=== PATIENT | male | born 1980 | race Caucasian/White ===

== ENCOUNTER 2019-12-17 14:46 | Emergency (ER) | payer SELFPAY ==
--- NOTE | ~2019-12-17 | XR_ITS ---
EXAMINATION: XR chest 1V portable EXAM DATE: 12/17/2019 17:46 INDICATION: Hypertension. TECHNIQUE: Portable AP frontal chest x-ray was obtained. There is no prior study for comparison. FINDINGS: The lungs are clear. There are no pleural effusions. Cardiac silhouette is prominent but magnified on this AP technique. There is no pneumothorax suspected. The bones and soft tissues are unremarkable. IMPRESSION: No acute cardiopulmonary findings. Reviewed, dictated and finalized at location A.
[2019-12-17 15:05] VITALS: BP 159/84; PULSE 108; RESP 20; TEMP 36.4; O2SAT 100
[2019-12-17 17:02] LABS: Basophils Absolute Auto 0.1 K/mm3 (0.0-0.1); Basophils Percent Auto 0.6 % (0.2-1.2); Eosinophils Absolute Auto 0.1 K/mm3 (0-0.3); Eosinophils Percent Auto 0.5 % (0-4.4); Hematocrit 47.6 % (42.0-52.0); Hemoglobin 16.9 g/dL (14.0-18.0); Immature Granulocyte Absolute 0.03 K/mm3 (0.00-0.031); Immature Granulocyte Percent A 0.3 % (0-0.5); Lymphocytes Percent Auto 16.2 % (18.3-44.2); Mean Corpuscular HGB Conc 35.5 g/dl (32-36); Mean Corpuscular Hemoglobin 34.6 pg (26-34); Mean Corpuscular Volume 97.3 fl (80-100); Mean Platelet Volume 11.4 fl (7.4-10.4); Monocytes Absolute Auto 0.6 K/mm3 (0.1-0.6); Monocytes Percent Auto 5.8 % (2.6-8.5); Neutrophils Absolute Auto 8.5 K/mm3 (1.3-6.7); Neutrophils Percent Auto 76.6 % (45.5-73.1); Platelet Count Result 244 k/mm3 (150-375); Red Blood Count 4.89 M/mm3 (4.6-6.20); Red Cell Distribution Width 13.4 % (11.5-14.5); White Blood Count 11.1 K/mm3 (4.5-10.0)
[2019-12-17 17:14] LABS: Alanine Aminotransferase 121 U/L (4-50); Albumin Level 4.7 g/dL (3.5-5.1); Alkaline Phosphatase 69 U/L (38-126); Anion Gap 13.8 mmol/L (7-16); Aspartate Amino Transferase 87 U/L (17-59); Bilirubin,Total 1.2 mg/dL (0.2-1.3); Blood Urea Nitrogen 5 mg/dL (9-20); Calcium 10.2 mg/dL (8.4-10.2); Carbon Dioxide 26 mmol/L (22-30); Chloride 102 mmol/L (98-107); Estimated CRCL calculation 160 ml/min; Estimated Glomerular Filt Rate > 60; Glucose 236 mg/dL (75-110); Potassium 3.8 mmol/L (3.4-5.0); Sodium 138 mmol/L (137-145)
--- NOTE | 2019-12-17 17:26 | ED.GENADULT ---
HPI - General Adult General Chief complaint: Recheck/Abnormal Lab/Rx Stated complaint: HTN Time Seen by Provider: 12/17/19 16:40 Source: patient Mode of arrival: ambulatory Limitations: no limitations History of Present Illness HPI narrative: Patient is a 39-year-old male who presents to emergency department for evaluation of asymptomatic elevated blood pressure patient was sent by primary care doctor's office today after being found to have elevated blood pressure preemployment contacted a primary care went to their office and was referred to the emergency department secondary forehead elevated blood pressure patient on arrival is asymptomatic denies history of blood pressure problems has not taken anything for blood pressure historically and on arrival is noted is resting comfortably in the room in no distress Related Data Allergies Allergy/AdvReac Type Severity Reaction Status Date / Time No Known Allergies Allergy Mild Unverified 01/22/09 19:10 Review of Systems Review of Systems: All systems reviewed & are unremarkable except as noted in HPI and below PMFSH Social History Social History (Updated 12/17/19 @ 17:28 by Corbin Jaimes PA-C) Smoking status: Current every day smoker Exam Narrative: Exam Narrative: GENERAL: Well-appearing, well-nourished, and in no acute distress. HEAD: Normocephalic, atraumatic. EYES: PERRLA and EOMI. ENT: Nares clear, no rhinorrhea or epistaxis. Mucous membranes moist. CHEST: Clear to auscultation. No respiratory distress. No wheezes rales or rhonchi HEART: Regular rate and rhythm. No murmur heard. Normal peripheral pulses. EXTREMITIES: Normal range of motion. No edema. SKIN: Warm, dry, no rash. NEURO: No focal deficits. Alert and oriented x3. Cranial nerves II through XII grossly intact PSYCH: Normal mood and affect. Course Course Emergency Course: complaints pain 1-year-old with mild patient was given antihypertensives in the emergency department with improvement no high risk changes in the blood work or imaging otherwise patient will be followed by primary care tomorrow in clinic for reevaluation will be started on metoprolol per request of primary care patient. Patient is asymptomatic and agrees with this plan. Patient given reasons to return Consultations Consultation #1: Discussed case with primary care who will follow patient in clinic tomorrow would like the patient to be started on 12.5 metoprolol succinate twice daily Date: 12/17/19 Time: 20:01 Vital Signs Vital signs: Vital Signs Temperature 97.6 F 12/17/19 15:05 Pulse Rate 108 H 12/17/19 15:05 Respiratory Rate 20 12/17/19 15:05 Blood Pressure 159/84 H 12/17/19 15:05 Pulse Oximetry 100 12/17/19 15:05 Temperature 97.6 F 12/17/19 15:05 Pulse Rate 109 H 12/17/19 19:34 Respiratory Rate 18 12/17/19 19:34 Blood Pressure 163/115 H 12/17/19 19:34 Pulse Oximetry 99 12/17/19 19:34 Medical Decision Making MDM Narrative Medical decision making narrative: Patient presented with tachycardia and hypertension that was asymptomatic found on office visit today also with elevated glucose. Patient will be discharged with follow-up in clinic with primary care tomorrow. Patient is resting comfortably in the room and agrees with this plan and has remained asymptomatic. Patient provided with reasons to return as well Vital Signs Vital Signs: Vital Signs Temperature 97.6 F 12/17/19 15:05 Pulse Rate 108 H 12/17/19 15:05 Respiratory Rate 20 12/17/19 15:05 Blood Pressure 159/84 H 12/17/19 15:05 Pulse Oximetry 100 12/17/19 15:05 Temperature 97.6 F 12/17/19 15:05 Pulse Rate 109 H 12/17/19 19:34 Respiratory Rate 18 12/17/19 19:34 Blood Pressure 163/115 H 12/17/19 19:34 Pulse Oximetry 99 12/17/19 19:34 Lab Data Result diagrams: 12/17/19 16:56 12/17/19 16:56 Labs: Lab Results 12/17/19 12/17/19 12/17/19 Range/Units 16:56 16:56 16:56
[2019-12-17 18:01] LABS: Hemoglobin A1C 7.9 % (<5.7)
--- NOTE | 2019-12-17 18:06 | ECG_ITS ---
Measurements Intervals [place] Rate: 96 P: 40 LA: 154 QRS: 10 QRSD: 101 T: 17 QT: 320 QTc: 406 Interpretive Statements SINUS RHYTHM DELAYED PRECORDIAL R/S TRANSITION VOLTAGE CRITERIA FOR LVH INFERIOR INFARCT, AGE INDETERMINATE ST ELEVATION IN ANTEROLAT/HIGH LAT LEADS- PROBABLY EARLY REPOLARIZATION ABNORMAL ECG Electronically Signed On 12-17-2019 18:56:13 CDT by Angel De La Cruz D.O.
[2019-12-17 18:07] LABS: Troponin I 0.027 ng/mL (0.000-0.034)
[2019-12-17] MEDS: cloNIDine HCL 0.2 MG TABLET PO (18:23)
[2019-12-17 18:29] LABS: Add Urine Microscopic? YES; Appearance Urine Clear (Clear); Bacteria Urine Trace /hpf; Bilirubin Urine Negative (Negative); Blood Urine 1+ (Negative); Color Urine Colorless (Yellow); Glucose Urine UA 2+ mg/dL (Negative); Ketones Urine Negative (Negative); Leukocyte Esterase Ur Negative LEU/UL (Negative); Nitrate Urine Negative (Negative); Protein Urine Negative (Negative); RBC Urine 0-2 /hpf (0-2); Squamous Epithelial Cell Urine Rare /hpf (Few); Urobilinogen Urine Negative mg/dL (<2.0)
[2019-12-17 18:31] LABS: Specific Grav Ur 1.002 (1.001-1.035)
[2019-12-17 18:47] LABS: Amphetamine Screen Urine Negative (Negative); Barbiturate Screen Urine Negative (Negative); Benzodiazepines Screen Urine Negative (Negative); Cannabinoid Screen Urine Negative (Negative); Cocaine Screen Urine Negative (Negative); Methadone Screen Urine Negative (Negative); Opiate Screen Urine Negative (Negative); Phencyclidine Screen Urine Negative (Negative)
[2019-12-17] MEDS: SODIUM CHLORIDE 0.9% IV 1,000 ML 999 ML IV CONT ×2 (18:52)
[2019-12-17 18:53] VITALS: BP 194/145; PULSE 118; RESP 20; O2SAT 99
[2019-12-17] MEDS: cloNIDine HCL 0.1 MG TABLET PO (19:03)
[2019-12-17 19:34] VITALS: BP 163/115; PULSE 109; RESP 18; O2SAT 99
[2019-12-17] MEDS: METOPROLOL TARTRATE INJ 5 MG/5 ML VIAL IV PUSH (19:34)
[2019-12-17 20:24] VITALS: BP 133/87; PULSE 92; RESP 18; O2SAT 99
== END 2019-12-17 20:26 | disposition home or self-care (01) ==
PROVIDERS: Emergency Medicine Emergency Medical Services; Emergency Provider Emergency Medicine; PCP Emergency Medicine
DX: I10 Essential (primary) hypertension (principal); R73.9 Hyperglycemia, unspecified; F17.200 Nicotine dependence, unspecified, uncomplicated; R94.31 Abnormal electrocardiogram [ECG] [EKG]
CPT/HCPCS: 36415; 71045; 80053; 80307; 81001; 83036; 84484; 85025; 93005; 96361; 96374; 99284; A9270; J7030

== ENCOUNTER 2020-12-22 11:37 | Emergency (ER) | payer OTHER, SELFPAY ==
[2020-12-22] VITALS (7 sets, daily range): BP systolic 195–227; BP diastolic 118–136; PULSE 76–109; RESP 16–26; TEMP 36.6; O2SAT 97–100
--- NOTE | ~2020-12-22 | XR_ITS ---
EXAMINATION: XR chest 2V DATE: 12/22/2020 12:11 INDICATION: Hypertension TECHNIQUE: PA and lateral views of the chest are obtained. COMPARISON: 12/17/2019 FINDINGS: The lungs are free of acute opacities. There is no pleural effusion or pneumothorax. The ca rdiomediastinal silhouette is normal. There is mild thoracic spondylosis. IMPRESSION: 1. No acute cardiopulmonary abnormality. Reviewed, dictated and finalized at location B.
--- NOTE | 2020-12-22 11:53 | ECG_ITS ---
Measurements Intervals [place] Rate: 89 P: 47 [place]: 154 QRS: -2 QRSD: 108 T: 47 QT: 334 QTc: 408 Interpretive Statements SINUS RHYTHM BORDERLINE R WAVE PROGRESSION, ANTERIOR LEADS CONSIDER INFERIOR INFARCT, AGE INDETERMINATE ABNORMAL ECG Electronically Signed On 12-22-2020 12:28:29 CDT by Angel De La Cruz D.O.
[2020-12-22 12:05] LABS: Basophils Absolute Auto 0.1 K/mm3 (0.0-0.1); Basophils Percent Auto 0.8 % (0.2-1.2); Eosinophils Absolute Auto 0.2 K/mm3 (0-0.3); Eosinophils Percent Auto 2.6 % (0-4.4); Hematocrit 49.4 % (42.0-52.0); Immature Granulocyte Absolute 0.02 K/mm3 (0.00-0.031); Immature Granulocyte Percent A 0.3 % (0-0.5); Lymphocytes Absolute Auto 1.98 K/mm3 (0.9-3.2); Lymphocytes Percent Auto 29.8 % (18.3-44.2); Mean Corpuscular HGB Conc 32.4 g/dl (32-36); Mean Corpuscular Hemoglobin 32.2 pg (26-34); Mean Corpuscular Volume 99.4 fl (80-100); Mean Platelet Volume 10.1 fl (7.4-10.4); Monocytes Absolute Auto 0.5 K/mm3 (0.1-0.6); Monocytes Percent Auto 7.8 % (2.6-8.5); Neutrophils Absolute Auto 3.9 K/mm3 (1.3-6.7); Neutrophils Percent Auto 58.7 % (45.5-73.1); Platelet Count Result 276 k/mm3 (150-375); Red Blood Count 4.97 M/mm3 (4.6-6.20); Red Cell Distribution Width 13.3 % (11.5-14.5); White Blood Count 6.7 K/mm3 (4.5-10.0)
[2020-12-22 12:15] LABS: Anion Gap 9 mmol/L (8-16); Blood Urea Nitrogen 5 mg/dL (9-20); Calcium 9.9 mg/dL (8.4-10.2); Carbon Dioxide 26 mmol/L (22-30); Chloride 102 mmol/L (98-107); Estimated CRCL calculation 130 ml/min; Estimated Glomerular Filt Rate > 60; Glucose 228 mg/dL (65-110); Potassium 4.1 mmol/L (3.4-5.0); Sodium 137 mmol/L (137-145)
[2020-12-22 12:19] LABS: INR 0.9; Prothrombin Time 12.3 Seconds (11.1-14.7)
[2020-12-22 12:20] LABS: Partial Thromboplastin Time 24.5 SECONDS (22.3-36.8)
[2020-12-22 12:26] LABS: Troponin I < 0.012 ng/mL (0.000-0.034)
[2020-12-22 15:56] LABS: Troponin I < 0.012 ng/mL (0.000-0.034)
[2020-12-22] MEDS: hydrALAZINE HCL 20 MG/ML VIAL 5 MG IV PUSH (16:31)
--- NOTE | 2020-12-22 16:39 | ED.RECABL ---
HPI - Recheck/Abnormal Lab/Rx General Chief Complaint: Recheck/Abnormal Lab/Rx Stated Complaint: sent for high blood pressure Time Seen by Provider: 12/22/20 16:00 History of Present Illness HPI narrative: Patient presents with elevated blood pressure. Patient is referred by his primary care doctor for hypertension. Patient has no complaints. Denies any chest pain, headaches, changes in vision, focal numbness or weakness. Denies any nausea vomiting or abdominal pain. Patient ports a history of elevated blood pressure he was on antihypertensive last year he thinks it was lisinopril. Ports blood pressure appear to be controlled so he discontinued his medication. Patient was at his primary care doctor for a routine appointment and was referred to the ER Related Data Allergies Allergy/AdvReac Type Severity Reaction Status Date / Time No Known Allergies Allergy Mild Unverified 01/22/09 19:10 Review of Systems Review of Systems: CONSTITUTIONAL: Denies fever, chills, or sweats. EYES: Denies visual changes, redness, or discharge. ENT: Denies rhinorrhea, congestion, sore throat, or otalgia. CARDIOVASCULAR: Denies chest pain, palpitations, or edema. RESPIRATORY: Denies cough or dyspnea. GASTROINTESTINAL: Denies abdominal pain, nausea, vomiting, or diarrhea. GENITOURINARY: Denies dysuria or hematuria. SKIN: Denies rash or itching. MUSCULOSKELETAL: Denies back pain, joint pain, or myalgia. NEUROLOGIC: Denies headache, numbness, dizziness, or weakness. PSYCHIATRIC: Denies anxiety or depression. All systems reviewed & are unremarkable except as noted in HPI and below PMFSH Social History Social History (Updated 12/17/19 @ 17:28 by Corbin Jaimes PA-C) Smoking status: Current every day smoker Exam Narrative: GENERAL: Well-appearing, well-nourished, and in no acute distress. HEAD: Normocephalic, atraumatic. EYES: PERRLA and EOMI. ENT: Nares clear, no rhinorrhea or epistaxis. Mucous membranes moist. NECK: Supple. No masses. No JVD CHEST: Clear to auscultation. No respiratory distress. No wheezes rales or rhonchi HEART: Regular rate and rhythm. No murmur heard. Normal peripheral pulses. ABDOMEN: Soft, nontender, nondistended, normal active bowel sounds. EXTREMITIES: Normal range of motion. No edema. SKIN: Warm, dry, no rash. NEURO: No focal deficits. Alert and oriented x3. PSYCH: Normal mood and affect. Course Reevaluation(s) Reevaluation #1: Patient continues to be asymptomatic and responding to medications Date: 12/22/20 Time: 16:40 Vital Signs Vital signs: Vital Signs Temperature 36.6 C 12/22/20 11:50 Pulse Rate 109 H 12/22/20 11:50 Respiratory Rate 16 12/22/20 11:50 Blood Pressure 227/131 H 12/22/20 11:50 Pulse Oximetry 100 12/22/20 11:50 Temperature 36.6 C 12/22/20 11:50 Pulse Rate 99 12/22/20 17:33 Respiratory Rate 22 H 12/22/20 17:33 Blood Pressure 199/123 H 12/22/20 17:33 Pulse Oximetry 100 12/22/20 17:33 MDM - Recheck/Abnormal Lab/Rx MDM Narrative Medical decision making narrative: Patient presents with asymptomatic hypertension exam is without focal neurological deficits labs are clinically unremarkable patient response to antihypertensives. Patient was instructed follow-up with his primary care doctor for long-term management of suspected chronic condition. Low concern for hypertensive emergency, ischemia, [employer] pathology Lab Data Result diagrams: 12/22/20 11:58 12/22/20 11:58 Labs: Lab Results 12/22/20 12/22/20 12/22/20 Range/Units 11:58 11:58 11:58 WBC 6.7 (4.5-10.0) K/mm3 RBC 4.97 (4.6-6.20) M/mm3 Hgb 16.0 (14.0-18.0) g/dL Hct 49.4 (42.0-52.0) % MCV 99.4 (80-100) fl MCH 32.2 (26-34) pg MCHC 32.4 (32-36) g/dl RDW 13.3 (11.5-14.5) % Plt Count 276 (150-375) k/mm3 MPV 10.1 (7.4-10.4) fl Immature Gran % (Auto) 0.3 (0-0.5) % Neut % (Auto) 58.7 (45.5-73.1) % Lymph % (Auto)
--- NOTE | 2020-12-22 16:59 | PC.NURSE ---
Dr. Monge aware of SBP >200; medication less than 30 minutes ago; VO wait 10 minutes and recheck.
--- NOTE | 2020-12-22 17:25 | PC.NURSE ---
Dr. Monge aware of BP 199/123. Okay to discharge.
== END 2020-12-22 17:34 | disposition home or self-care (01) ==
PROVIDERS: Emergency Medicine; Emergency Provider Emergency Medicine; PCP Emergency Medicine
DX: I10 Essential (primary) hypertension (principal); F17.200 Nicotine dependence, unspecified, uncomplicated
CPT/HCPCS: 36415; 71046; 80048; 84484; 85025; 85610; 85730; 93005; 96374; 99284; J0360